=== PATIENT | female | born 1945 | race Two or more races ===

== ENCOUNTER 2019-11-01 15:42 | Emergency (ER) | payer MEDICARE ==
[~2019-11-01] VITALS: Ht 170.2 cm; Wt 68.0 kg
[2019-11-01 16:04] VITALS: BP 143/66
== END 2019-11-01 18:50 | disposition home or self-care (01) ==
LOC: ER 15:45
DX: S20.212A Contusion of left front wall of thorax, initial encounter (principal); I10 Essential (primary) hypertension; E11.9 Type 2 diabetes mellitus without complications; V49.59XA Passenger injured in collision with other motor vehicles in traffic accident, initial encounter; Y93.89 Activity, other specified; Y92.413 State road as the place of occurrence of the external cause; Y99.8 Other external cause status
CPT/HCPCS: 36415; 71046; 84484-TC